=== PATIENT | female | born 1985 | race Two or more races ===

== ENCOUNTER 2023-12-18 10:24 | Observation (INO) | payer MEDICAID ==
[~2023-12-18 10:24] MED LIST: FERR-7 PO; PREN-96 PO
[2023-12-18] MEDS: BETAMETHASONE ACET (30mg/5ml) 5ml Vial 6mg/ml IM ONE (11:03)
== END 2023-12-18 11:27 | disposition home or self-care (01) ==
LOC: LDRP 10:24 → UNDOADMOB 10:24 → LDRP 10:28 → UNDODISOB 11:27
PROVIDERS: ADMIT Obstetrics & Gynecology; ATTEND Obstetrics & Gynecology
DX: O60.03 Preterm labor without delivery, third trimester (principal); O24.419 Gestational diabetes mellitus in pregnancy, unspecified control; O26.893 Other specified pregnancy related conditions, third trimester; R51.9 Headache, unspecified; Z3A.32 32 weeks gestation of pregnancy; Z87.891 Personal history of nicotine dependence
CPT/HCPCS: 59025; 81002; 82948; 96372; G0378

== ENCOUNTER 2023-12-25 15:11 | Observation (INO) | payer MEDICAID | END 2023-12-25 16:56 | disposition home or self-care (01) | LOC: LDRP 15:11 → UNDOADMOB 15:11 → LDRP 15:28 | PROVIDERS: ADMIT Obstetrics & Gynecology; ATTEND Obstetrics & Gynecology | DX: O24.419 Gestational diabetes mellitus in pregnancy, unspecified control (principal); O60.03 Preterm labor without delivery, third trimester; Z3A.33 33 weeks gestation of pregnancy; Z87.891 Personal history of nicotine dependence | CPT/HCPCS: 59025; 76818; 81002; 82948; 94760; G0378 ==

== ENCOUNTER 2024-01-01 17:10 | Observation (INO) | payer MEDICAID | END 2024-01-01 18:56 | disposition home or self-care (01) | LOC: LDRP 17:10 | PROVIDERS: ADMIT Obstetrics & Gynecology; ATTEND Obstetrics & Gynecology | DX: O24.419 Gestational diabetes mellitus in pregnancy, unspecified control (principal); O60.03 Preterm labor without delivery, third trimester; Z3A.34 34 weeks gestation of pregnancy; Z87.891 Personal history of nicotine dependence | CPT/HCPCS: 59025; 76818; 81002; 82948; 82962; 94760; G0378 ==

== ENCOUNTER 2024-01-08 19:01 | Observation (INO) | payer MEDICAID ==
[~2024-01-08] VITALS: Ht 160 cm; Wt 112.0 kg
== END 2024-01-08 21:48 | disposition home or self-care (01) ==
LOC: LDRP 19:01
PROVIDERS: ADMIT Obstetrics & Gynecology; ATTEND Obstetrics & Gynecology
DX: O60.03 Preterm labor without delivery, third trimester (principal); O24.419 Gestational diabetes mellitus in pregnancy, unspecified control; Z3A.35 35 weeks gestation of pregnancy; Z87.891 Personal history of nicotine dependence
CPT/HCPCS: 59025; 76818; 81002; 82948; 82962; 94760; G0378

== ENCOUNTER 2024-01-15 18:55 | Observation (INO) | payer MEDICAID | END 2024-01-15 20:17 | disposition home or self-care (01) | LOC: LDRP 18:55 | PROVIDERS: ADMIT Obstetrics & Gynecology; ATTEND Obstetrics & Gynecology | DX: O60.03 Preterm labor without delivery, third trimester (principal); O24.419 Gestational diabetes mellitus in pregnancy, unspecified control; Z3A.37 37 weeks gestation of pregnancy; Z87.891 Personal history of nicotine dependence | CPT/HCPCS: 59025; 76818; 81002; 82948; 82962; 94760; G0378 ==

== ENCOUNTER 2024-01-29 08:20 | Inpatient (IN) | payer MEDICAID ==
[~2024-01-29] VITALS: Ht 160 cm; Wt 113.4 kg
[2024-01-29] MEDS ORDERED: LIDOCAINE 2%HCL (LOCAL ANESTH.) INJ 20ML MDV IJ PRN (08:45)
[2024-01-29] MEDS ORDERED: miSOPROStol 100 mcg TAB SL PRN (08:45)
[2024-01-29] MEDS ORDERED: BUTORPHANOL TARTRATE 2 MG/1 ML VIAL IV PRN ×2 (08:45)
[2024-01-29] MEDS ORDERED: miSOPROStol 100 mcg TAB PR PRN (08:45)
[2024-01-29] MEDS: CARBOPROST TROMETHAMINE 250 MCG/1ML VIAL IM ONE (08:45)
[2024-01-29 09:10] LABS: Basophils # (auto) 0 10 ^3/uL (0-0.2); Basophils % (auto) 0.3 % (0.0-2.0); Eosinophils # (auto) 0.1 10 ^3/uL (0-0.8); Eosinophils % (auto) 1.1 % (0.0-7.0); Hemoglobin 10.8 g/dL (12.2-16.2); Monocytes # (auto) 0.4 10 ^3/uL (0-1.3); Monocytes % (auto) 4.7 % (0.0-12.0); Nucleated Red Blood Cells % 0.1 %; Red Cell Distribution Width 19.3 % (11.8-14.3)
[2024-01-29 09:12] LABS: Hematocrit 34.9 % (36.0-46.0); Lymphocytes # (auto) 2.3 10 ^3/uL (0.4-5.4); Lymphocytes % (auto) 26.7 % (10.0-50.0); Mean Corpuscular Hemoglobin 23.3 pg (28.0-32.0); Mean Corpuscular Hgb Conc. 31.1 g/dL (32.0-36.0); Mean Corpuscular Volume 75.1 fL (80.0-100.0); Neutrophils # (auto) 5.7 10 ^3/uL (1.6-8.6); Neutrophils % (auto) 67.2 % (37.0-80.0); Red Blood Cells 4.64 10^6/uL (4.0-5.20); White Blood Cell 8.5 10^3/uL (4.4-10.8)
[2024-01-29 09:23] LABS: Urine Bacteria FEW /hpf (None Seen); Urine Blood Negative /uL (Negative); Urine Budding Yeast OCCASIONAL /hpf (None Seen); Urine Clarity Turbid (Clear); Urine Color Light-Orange (Yellow); Urine Hyaline Cast FEW /lpf (0 - 2); Urine Mucus FEW (None Seen); Urine Protein, UAD TRACE (Negative); Urine Specific Gravity 1.024 (1.001-1.035); Urine Urobilinogen Normal (Negative); Urine WBC 2 /hpf (0 - 5)
[2024-01-29 09:27] LABS: INR 0.91 (0.9-1.15); Partial Thromboplastin Time 25.9 SEC (24.5-34.5); Prothrombin Time 9.7 sec (9.3-11.8)
[2024-01-29 09:28] LABS: Alanine Aminotransferase 25 U/L (7-40); Albumin 3.7 g/dL (3.2-4.8); Alkaline Phosphatase 145 U/L (46-116); Anion Gap 8 (5-15); Aspartate Aminotransferase 23 U/L (13-40); BUN/Creatinine Ratio 17.2 (10.0-20.0); Bilirubin, Total 0.3 mg/dL (0.2-1.0); Blood Urea Nitrogen 11 mg/dL (9-23); Calcium 8.9 mg/dL (8.5-10.1); Carbon Dioxide 19 mmol/L (20-30); Chloride 111 mmol/L (98-107); Glucose 107 mg/dL (74-106); Potassium 3.9 mmol/L (3.5-5.1); Sodium 138 mmol/L (136-145); Total Protein 6.6 g/dL (5.7-8.2)
[2024-01-29 09:35] LABS: Amphetamine Screen, Urine Neg (NEGATIVE); Barbiturate Scree,Urine Neg (NEGATIVE); Benzodiazephine Screen, Urine Neg (NEGATIVE); Cannabinoid Screen, Urine Neg (NEGATIVE); Cocaine Screen, Urine Neg (NEGATIVE); Opiate Scree,Urine Neg (NEGATIVE); Phencyclidine Screen, Urine Neg (NEGATIVE)
[2024-01-29] MEDS ORDERED: DIPHENOXYLATE W/ATROPINE 2.5 MG TAB PO SCH (10:00)
[2024-01-29] MEDS: miSOPROStol 50 MCG per PRE-CUT 1/2 TAB PO PRN (11:03)
[2024-01-29] MEDS ORDERED: ACCU-CHEK COMFORT CURVE STRIP VI SCH (12:00)
[2024-01-29] MEDS: LACTATED RINGER'S 1,000 ML IV SCH (14:37)
[2024-01-29] MEDS: LACT. RINGERS/OXYTOCIN 20UNITS 1,000 ML IV SCH (19:01)
[2024-01-29] MEDS: WITCH HAZEL-GLYCERIN PAD TOP PRN (19:29)
[2024-01-29] MEDS: DERMOPLAST 60ML BOTTLE TOP PRN (19:29)
[2024-01-29] MEDS: PHISODERM TOP SOLN 240ML BTL TOP PRN (19:29)
[2024-01-30] MEDS: LACTATED RINGER'S 1,000 ML IV ONE
[2024-01-30] MEDS: ePHEDrine SULFATE 50 MG/ML AMP IV ONE
[2024-01-30] MEDS: NALOXONE HCL 0.4 MG/ML VIAL IV ONE
[2024-01-30] MEDS: LIDOCAINE HCL 2 %PF INJ 10ML AMP IJ ONE
[2024-01-30] MEDS ORDERED: DEXTROSE (50%) 50ML SYRG IV PRN (00:30)
[2024-01-30] MEDS: fentaNYL CITRATE 100 MCG/2 ML VL IV ONE (01:41)
[2024-01-30] MEDS: ROPIVACAINE HCL 200 ML ONE (01:42)
[2024-01-30] MEDS: LACT. RINGERS/OXYTOCIN 20UNITS 500 ML IV ONE ×2 (02:25→03:00)
[2024-01-30] MEDS: METHYLERGONOVINE MALEATE 0.2 MG/ML AMP IM PRN (02:30)
[2024-01-30] MEDS ORDERED: InsuLIN REG 1unit/0.01ml Soln (100units/ml) SC SCH (02:45)
[2024-01-30] MEDS: ACETAMINOPHEN 325 MG TAB PO PRN (04:14)
[2024-01-30] MEDS: AMMONIA 0.33 ML INHALANT IN ONE (05:13)
[2024-01-30] MEDS: IBUPROFEN 600 MG TAB PO PRN (06:29)
[2024-01-30 07:00] VITALS: BP 113/58; PULSE 79; RESP 20; TEMP 97.7; O2SAT 97
[2024-01-30 11:00] VITALS: BP 124/75; PULSE 73; RESP 20; TEMP 97.6; O2SAT 98
[2024-01-30] MEDS: CYCLOBENZAPRINE HCL 10 MG TAB PO ONE (12:05)
[2024-01-30] MEDS ORDERED: ONDANSETRON HCL 4 MG/2 ML VIAL ONE (14:37)
[2024-01-30] MEDS ORDERED: fentaNYL CITRATE 100 MCG/2 ML VL ONE (14:37)
[2024-01-30] MEDS ORDERED: GLYCOPYRROLATE 0.2 MG/ML 1ML VIAL ONE (14:37)
[2024-01-30] MEDS ORDERED: MIDAZOLAM HCL 2MG/2ML 2ml VIAL (1mg/ml) ONE (14:37)
[2024-01-30 19:30] VITALS: BP 112/60; PULSE 65; RESP 18; TEMP 97.9; O2SAT 97
[2024-01-30] MEDS ORDERED: HYDROmorphone HCL 2 MG/ML VL/or syr IV PRN (20:45)
[2024-01-30] MEDS ORDERED: MORPHINE SULFATE 4 MG/ML SYR/VIAL IV PRN (20:45)
[2024-01-30] MEDS: HYDROmorphone HCL 2 MG/ML VL/or syr IV PRN (21:08)
[2024-01-30] MEDS: ONDANSETRON ODT 4 MG TAB PO PRN (21:59)
[2024-01-30] MEDS: DOCUSATE SOD 100 MG CAP PO SCH (22:00)
[2024-01-30 23:12] VITALS: BP 118/61; PULSE 78; RESP 18; TEMP 97.9; O2SAT 98
[2024-01-31] MEDS ORDERED: DOCU-265 PO (01:00)
[2024-01-31] MEDS ORDERED: FERR-7 PO (01:00)
[2024-01-31] MEDS ORDERED: IBUP-1456 PO (01:00)
[2024-01-31] MEDS ORDERED: ASCO500T11 PO (01:00)
[2024-01-31] MEDS: KETOROLAC TROMETH 30 MG/ML 1ML VIAL IV PRN (02:31)
[2024-01-31] MEDS: LACTATED RINGER'S 1,000 ML IV SCH (02:51)
[2024-01-31 03:00] VITALS: BP 130/65; PULSE 70; RESP 18; TEMP 98.2; O2SAT 97
[2024-01-31 06:19] LABS: Basophils # (auto) 0 10 ^3/uL (0-0.2); Eosinophils # (auto) 0.1 10 ^3/uL (0-0.8); Hemoglobin 8.4 g/dL (12.2-16.2); Lymphocytes # (auto) 2.5 10 ^3/uL (0.4-5.4); Mean Corpuscular Volume 76.1 fL (80.0-100.0); Monocytes # (auto) 0.4 10 ^3/uL (0-1.3)
[2024-01-31 06:20] LABS: Basophils % (auto) 0.4 % (0.0-2.0); Eosinophils % (auto) 0.7 % (0.0-7.0); Hematocrit 26.3 % (36.0-46.0); Lymphocytes % (auto) 28.3 % (10.0-50.0); Mean Corpuscular Hemoglobin 24.3 pg (28.0-32.0); Mean Corpuscular Hgb Conc. 31.9 g/dL (32.0-36.0); Monocytes % (auto) 4.6 % (0.0-12.0); Neutrophils # (auto) 5.9 10 ^3/uL (1.6-8.6); Nucleated Red Blood Cells % 0.1 %; Red Blood Cells 3.46 10^6/uL (4.0-5.20); Red Cell Distribution Width 19.2 % (11.8-14.3); White Blood Cell 8.9 10^3/uL (4.4-10.8)
[2024-01-31 07:00] VITALS: BP 118/58; PULSE 67; RESP 17; TEMP 98; O2SAT 97
[2024-01-31 11:07] LABS: RPR Non Reactive (Non Reactive)
[2024-01-31 11:10] VITALS: BP 137/73; PULSE 75; RESP 17; TEMP 97.8
[2024-01-31] MEDS: IBUPROFEN 800 MG TAB PO PRN (14:46)
[2024-01-31 15:00] VITALS: BP 120/59; PULSE 18; TEMP 97.8; O2SAT 99
[2024-01-31 19:00] VITALS: BP 118/74; PULSE 88; RESP 16; TEMP 97.9; O2SAT 95
[2024-01-31 19:06] LABS: Treponema pallidum Ab (FTA-Ab) Non Reactive (Non Reactive)
[2024-01-31 23:00] VITALS: BP 125/63; PULSE 77; RESP 16; TEMP 98; O2SAT 98
[2024-02-01 02:55] VITALS: BP 117/67; PULSE 67; RESP 17; TEMP 98.1; O2SAT 100
[2024-02-01 07:00] VITALS: BP 129/60; PULSE 70; RESP 16; TEMP 98; O2SAT 97
== END 2024-02-01 07:59 | disposition home or self-care (01) | DRG 560 ==
LOC: LDRP 08:20
PROVIDERS: ADMIT Obstetrics & Gynecology; ATTEND Obstetrics & Gynecology
PROC: 10E0XZZ Delivery of Products of Conception, External Approach (ICD-10-PCS; principal; 2024-01-30)
PROC: 3E033VJ Introduction of Other Hormone into Peripheral Vein, Percutaneous Approach (ICD-10-PCS; 2024-01-30)
PROC: 3E0DXGC Introduction of Other Therapeutic Substance into Mouth and Pharynx, External Approach (ICD-10-PCS; 2024-01-30)
PROC: 3E0R3BZ Introduction of Anesthetic Agent into Spinal Canal, Percutaneous Approach (ICD-10-PCS; 2024-01-30)
PROC: 00HU33Z Insertion of Infusion Device into Spinal Canal, Percutaneous Approach (ICD-10-PCS; 2024-01-30)
PROC: 3E0R3GC Introduction of Other Therapeutic Substance into Spinal Canal, Percutaneous Approach (ICD-10-PCS; 2024-01-30)
DX: O99.52 Diseases of the respiratory system complicating childbirth (principal); Z37.0 Single live birth; O24.420 Gestational diabetes mellitus in childbirth, diet controlled; J45.909 Unspecified asthma, uncomplicated; G97.1 Other reaction to spinal and lumbar puncture; Y84.4 Aspiration of fluid as the cause of abnormal reaction of the patient, or of later complication, without mention of misadventure at the time of the procedure; O90.89 Other complications of the puerperium, not elsewhere classified; Z3A.38 38 weeks gestation of pregnancy; Y92.89 Other specified places as the place of occurrence of the external cause
CPT/HCPCS: 36415; 59025; 59409; 62282; 80053; 80307; 81001; 81002; 82948; 82962; 85025; 85610; 85730; 86592; 86703; 86803; 86850; 86900; 86901; 87340; 94760; 94762; 96360; 96361; 96365; 96366; 96372; 96374; 96375; G0378; J1885; J2250; J2405; J2590; Q0162